=== PATIENT | female | born 1965 | race African-American/Black ===

== ENCOUNTER 2017-02-17 13:31 | Emergency (ER) | payer MEDICARE, OTHER ==
[~2017-02-17] VITALS: Ht 162.6 cm; Wt 72.6 kg
[2017-02-17] MEDS ORDERED: NORCO 10-325 T1 EACH ORAL (13:42)
[2017-02-17] MEDS ORDERED: ATORVASTATIN CA20 MG ORAL (13:42)
[2017-02-17 13:50] VITALS: BP 130/69
[2017-02-17] MEDS ORDERED: Ketorolac 60mg Inj IM ONE (14:15)
[2017-02-17] MEDS ORDERED: IBUPROFEN600 MG ORAL (15:04)
[2017-02-17] MEDS ORDERED: ACETAMINOPHEN-1 EAC1 ORAL (15:04)
[2017-02-17 15:10] VITALS: BP 130/69
--- NOTE | 2017-02-17 21:31 | Emergency Room Report ---
History of Present Illness General Chief Complaint: Pain Source: Patient Present Illness HPI The patient is a 51-year-old female presenting for lower back pain. She states that she has a history of chronic lower back pain with sciatica. She denies any recent injury. Pain is a 7/10 dull ache to the mid lower back and radiates down both legs. Worse with movement. She denies any numbness or tingling. She denies any incontinence She denies other symptoms including N, V, F, chills, SOB, abd pain Allergies: Coded Allergies: No Known Allergies (Unverified , 02/17/17) Patient History Past Medical History: see triage record Pertinent Family History: none Last Menstrual Period: Hyst Reviewed Nursing Documentation: PMH: Agreed, PSxH: Agreed Review of Systems All Other Systems: negative except mentioned in HPI Physical Exam Vital Signs Date Time Temp Pulse Resp B/P (MAP) Pulse Ox O2 Delivery O2 Flow Rate FiO2 02/17/17 13:36 98.2 89 16 130/69 98 Room Air Sp02 EP Interpretation: reviewed, normal General Appearance: no apparent distress, alert, GCS 15, non-toxic Head: normocephalic, atraumatic Eyes: bilateral eye normal inspection, bilateral eye PERRL ENT: hearing grossly normal, normal pharynx, no angioedema, normal voice Neck: full range of motion, supple/symm/no masses Respiratory: chest non-tender, lungs clear, normal breath sounds, speaking full sentences Cardiovascular #1: regular rate, rhythm, no edema Genitourinary: normal inspection, no CVA tenderness Musculoskeletal: back normal, gait/station normal, normal range of motion, tender - bilat Lumbar paraspinal muscles Neurologic: alert, oriented x3, responsive, motor strength/tone normal, sensory intact, speech normal Psychiatric: judgement/insight normal, memory normal, mood/affect normal, no suicidal/homicidal ideation Skin: normal color, no rash, warm/dry, well hydrated Medical Decision Making PA Attestation Dr. Givens is my supervising physician. Patient management was discussed with my supervising physician Diagnostic Impression: Primary Impression: Back pain Qualified Codes: M54.5 - Low back pain ER Course The patient is a 51-year-old female presenting for back pain Ddx considered include but not limited to lumbar strain, degenerative disease, cauda equina syndrome, chronic pain, narcotic dependency. PE: NAD TTP over bilat lumbar paraspinal muscles. Normal gait. No deformity. No midline TTP The patient is given Toradol in the emergency department for pain and is feeling better. She'll be discharged home and needs to follow up with her primary doctor. ER precautions are given Last Vital Signs Date Time Temp Pulse Resp B/P (MAP) Pulse Ox O2 Delivery O2 Flow Rate FiO2 02/17/17 15:10 98.2 16 130/69 98 Room Air 02/17/17 13:36 89 Status: improved Disposition: HOME, SELF-CARE Condition: Improved Scripts Acetaminophen With Codeine (T#3) (TYLENOL #3 TAB*) Y Tab 1 TAB ORAL Q6HR Y for For Pain, #10 TAB Prov: FITO BRAXTON 02/17/17 Ibuprofen* (MOTRIN*) 600 Mg Tablet 600 MG ORAL Q8H Y for For Pain, #30 TAB 0 Refills Prov: FITO BRAXTON 02/17/17 Patient Instructions: Sciatica, Back Pain, Adult Additional Instructions: I discussed my findings with the patient. All questions and concerns have been answered. Treatment and medication compliance have been addressed. I advised the patient that they need to follow up with PMD in 3-5 days. Return to ED if symptoms worsen, new symptoms arise, or if needed for any reason. Patient verbalized understanding of discharge instructions. FITO BRAXTON Feb 17, 2017 21:31
== END 2017-02-17 15:10 | disposition home or self-care (01) ==
LOC: EMR 14:09
DX: M54.40 Lumbago with sciatica, unspecified side (principal); G89.29 Other chronic pain
CPT/HCPCS: 96372; 99284

== ENCOUNTER 2018-10-26 15:30 | Emergency (ER) | payer MEDICARE, OTHER ==
[~2018-10-26] VITALS: Ht 162.6 cm; Wt 79.8 kg
[~2018-10-26 15:30] MED LIST: ACETAMINOPHEN-1 EAC1 ORAL; ATORVASTATIN CA20 MG ORAL; IBUPROFEN600 MG ORAL; NORCO 10-325 T1 EACH ORAL
[2018-10-26 16:00] VITALS: BP 119/79
--- NOTE | 2018-10-26 16:00 | NUR ---
ED Nurse Note: pt walked in due to rash on the skin. pt stated it might be from an insect bite. seen by louie norman. will continue to monitor.
--- NOTE | 2018-10-26 16:15 | Emergency Room Report ---
History of Present Illness General Chief Complaint: General Complaint Source: Patient Present Illness HPI 53-year-old female presents to the emergency department for multiple itchy red insect bites on lower extremities and upper extremities. Patient also reports one on the right side of her stomach which is the largest and has moderate erythema. Patient denies recent travel or ill contacts. Pt. denies pain, fevers, chills or swollen tender lymph nodes. Denies lesions/rashes elsewhere on the body. Denies new medications or body washes or creams. Denies swelling of the lips, tongue , throat or airway. Denies wheezing, or shortness of breath. Denies recent travel, recent illness or ill contacts. denies blisters , oral lesions, or sloughing of the skin. Allergies: Coded Allergies: No Known Allergies (Unverified , 02/17/17) Patient History Past Medical History: see triage record Past Surgical History: none Pertinent Family History: none Now: No Reviewed Nursing Documentation: PMH: Agreed; PSxH: Agreed Nursing Documentation-PMH Past Medical History: No History, Except For Review of Systems All Other Systems: negative except mentioned in HPI Physical Exam Vital Signs Date Time Temp Pulse Resp B/P (MAP) Pulse Ox O2 Delivery O2 Flow Rate FiO2 10/26/18 15:38 98.2 74 18 119/79 (92) 96 Room Air Sp02 EP Interpretation: reviewed, normal General Appearance: no apparent distress, alert, GCS 15, non-toxic Head: normocephalic, atraumatic Eyes: bilateral eye normal inspection, bilateral eye PERRL ENT: hearing grossly normal, normal voice Neck: full range of motion, other - no stridor Respiratory: chest non-tender, lungs clear, normal breath sounds, no respiratory distress, no accessory muscle use, no wheezing, speaking full sentences Cardiovascular #1: regular rate, rhythm Musculoskeletal: back normal, gait/station normal, normal range of motion, non- tender Neurologic: alert, oriented x3, responsive, motor strength/tone normal, sensory intact, speech normal, grossly normal Psychiatric: judgement/insight normal Skin: other - insect bites of multiple sites, one 1cm bite on the right side of the stomach with 2-3 cm diameter of surrounding erythema and warmth. no blisters or vesicles. No crusting. excoriations noted. Lymphatic: no adenopathy Medical Decision Making PA Attestation Dr. Nicholas Is my supervising Physician whom patient management has been discussed with. Diagnostic Impression: Primary Impression: Insect bites Qualified Codes: W57.XXXA - Bitten or stung by nonvenomous insect and other nonvenomous arthropods, initial encounter Additional Impression: Cellulitis Qualified Codes: L03.90 - Cellulitis, unspecified ER Course 53-year-old female presents to the emergency department for multiple itchy red insect bites on lower extremities and upper extremities. Patient also reports one on the right side of her stomach which is the largest and has moderate erythema. Patient denies recent travel or ill contacts. Pt. denies pain, fevers, chills or swollen tender lymph nodes. Denies lesions/rashes elsewhere on the body. Denies new medications or body washes or creams. Denies swelling of the lips, tongue , throat or airway. Denies wheezing, or shortness of breath. Denies recent travel, recent illness or ill contacts. denies blisters , oral lesions, or sloughing of the skin. Ddx considered but are not limited to cellulitis, scabies, insect bites, tic bites, spider bites, contact dermatitis, Drug reaction, allergic reaction, fungal infection, lice. Vital signs: are WNL, pt. is afebrile H&PE are most consistent with insect bites of multiple sites, one bite on the right side of the stomach appears to have secondary cellulitis. ORDERS: none required at this time, the diagnosis is clinical ED INTERVENTIONS: None required at this time. DISCHARGE: At this time pt. is stable for d/c to home. Will provide printed patient care instructions, and any necessary prescriptions. Care plan and follow up instructions have been discussed with the patient prior to discharge. Last Vital Signs Date Time Temp Pulse Resp B/P (MAP) Pulse Ox O2 Delivery O2 Flow Rate FiO2 10/26/18 15:38 98.2 74 18 119/79 (92) 96 Room Air Disposition: HOME, SELF-CARE Condition: Stable Scripts Hydrocortisone 2% Cream (ANTI-ITCH 2% CREAM) Y Cr 1 APPLIC TP Q6HR, #28 GM Prov: Nell Starkey 10/26/18 Cephalexin* (KEFLEX*) 500 Mg Capsule 500 MG ORAL EVERY 12 HOURS for 7 Days, #14 CAP 0 Refills Prov: Nell Starkey 10/26/18 Patient Instructions: Cellulitis, [id number], Insect Bite, [id number] Additional Instructions: Take medications as directed. Follow up with a Primary Care Provider in 3-5 days, even if your symptoms have resolved. --Please review list of primary care clinics, if you do not already have a primary care provider Return sooner to ED if new symptoms occur, or current symptoms become worse. - Please note that this Emergency Department Report was dictated using [employer] polisher technology software, occasionally this can lead to erroneous entry secondary to interpretation by the dictation equipment. Nell Starkey Oct 26, 2018 16:15
[2018-10-26] MEDS ORDERED: ANTI-ITCH28 G1 TP (16:16)
[2018-10-26] MEDS ORDERED: CEPHALEXIN500 MG ORAL (16:16)
[2018-10-26 16:37] VITALS: BP 119/79
--- NOTE | 2018-10-26 16:37 | NUR ---
ER DISCHARGE NOTE: Patient is cleared to be discharged per ERMD, pt is aox4, on room air, with stable vital signs. pt was given dc and prescription instructions, pt was able to verbalize understanding, pt id band removed without complications. pt is able to ambulate with steady gait. pt took all belongings.
== END 2018-10-26 16:37 | disposition home or self-care (01) ==
LOC: EMR 16:20
DX: S80.862A Insect bite (nonvenomous), left lower leg, initial encounter (principal); S80.861A Insect bite (nonvenomous), right lower leg, initial encounter; S20.361A Insect bite (nonvenomous) of right front wall of thorax, initial encounter; S40.862A Insect bite (nonvenomous) of left upper arm, initial encounter; S40.861A Insect bite (nonvenomous) of right upper arm, initial encounter; W57.XXXA Bitten or stung by nonvenomous insect and other nonvenomous arthropods, initial encounter; Y92.9 Unspecified place or not applicable; L03.90 Cellulitis, unspecified
CPT/HCPCS: 99282

== ENCOUNTER 2018-12-11 13:23 | Emergency (ER) | payer MEDICARE, OTHER ==
[~2018-12-11] VITALS: Ht 167.6 cm; Wt 77.1 kg
[~2018-12-11 13:23] MED LIST changes: +ANTI-ITCH28 G1 TP; +CEPHALEXIN500 MG ORAL
--- NOTE | 2018-12-11 13:50 | NUR ---
ED Nurse Note: pt from home walked into ED c/o skin rash located on her lower right abdomen ermd eval done awaiting orders.
--- NOTE | 2018-12-11 13:59 | Emergency Room Report ---
History of Present Illness General Chief Complaint: Skin Rash/Abscess Source: Patient Present Illness HPI 53-year-old female with no significant past medical history presents today complaining of pruritic rash in the right lower quadrant that started 3 days ago. Patient reports that she always gets this rash in the same exact spot whenever walking into either her partner or her brother is guarding. Denies any pain at the site of the affected area. Denies fever and chills. Slightly erythematous lesion noted in the right lower quadrant with possible cyst pocket underneath. Denies nausea vomiting abdominal pain. Denies chest pain palpitation. Has not taken medication for symptom relief. Patient was recently seen at [facility] 2 months ago for similar lesions on her lower extremities and was diagnosed with infected insect bite given Keflex. Denies any fall or injury to the affected area. Denies any past surgical history in the affected area. Allergies: Coded Allergies: No Known Allergies (Unverified , 02/17/17) Patient History Past Medical History: see triage record Past Surgical History: unable to obtain Pertinent Family History: none Last Menstrual Period: n/a Now: No Immunizations: UTD Reviewed Nursing Documentation: PMH: Agreed; PSxH: Agreed Nursing Documentation-PMH Past Medical History: No History, Except For Review of Systems All Other Systems: negative except mentioned in HPI Physical Exam Vital Signs Date Time Temp Pulse Resp B/P (MAP) Pulse Ox O2 Delivery O2 Flow Rate FiO2 12/11/18 13:31 98.2 72 18 117/93 (101) 98 Room Air Sp02 EP Interpretation: reviewed, normal General Appearance: no apparent distress, alert, GCS 15, non-toxic Head: normocephalic, atraumatic Eyes: bilateral eye normal inspection, bilateral eye PERRL ENT: hearing grossly normal, normal pharynx, no angioedema, normal voice Neck: full range of motion, supple/symm/no masses Respiratory: chest non-tender, lungs clear, normal breath sounds, no rhonchi, speaking full sentences Cardiovascular #1: regular rate, rhythm, no edema, no murmur, normal capillary refill Gastrointestinal: normal bowel sounds, non tender, soft, non-distended, no guarding, no rebound Rectal: deferred Genitourinary: normal inspection, no CVA tenderness Musculoskeletal: back normal, gait/station normal, normal range of motion, non- tender Neurologic: alert, oriented x3, responsive, motor strength/tone normal, sensory intact, speech normal Psychiatric: judgement/insight normal, memory normal, mood/affect normal, no suicidal/homicidal ideation Skin: other - Slightly erythematous lesion in the right lower quadrant not warm to touch Lymphatic: normal inspection Medical Decision Making PA Attestation Diagnosis and treatment plans were reviewed and discussed with my supervising physician Dr. Nicholas Diagnostic Impression: Primary Impression: Infected insect bite of abdomen ER Course 53-year-old female with no significant past medical history presents today complaining of pruritic rash in the right lower quadrant that started 3 days ago. Patient reports that she always gets this rash in the same exact spot whenever walking into either her partner or her brother is guarding. Denies any pain at the site of the affected area. Denies fever and chills. Slightly erythematous lesion noted in the right lower quadrant with possible cyst pocket underneath. Denies nausea vomiting abdominal pain. Denies chest pain palpitation. Has not taken medication for symptom relief. Patient was recently seen at [facility] 2 months ago for similar lesions on her lower extremities and was diagnosed with infected insect bite given Keflex. Denies any fall or injury to the affected area. Denies any past surgical history in the affected area. Ddx considered but are not limited to : Cellulitis, infected insect bite, superficial infection, abscess Vital signs: are WNL, pt. is afebrile H&PE are most consistent with: Infected insect bite ORDERS: Augmentin, hydrocortisone cream ED INTERVENTIONS: None required at this time. DISCHARGE: At this time pt. is stable for d/c to home. Will provide printed patient care instructions, and any necessary prescriptions. Care plan and follow up instructions have been discussed with the patient prior to discharge. Follow with primary care provider if needed referral to licensed tax consultant per request of primary care. If worsening symptoms, fever and chills return to the emergency room. If any pus drainage return to the emergency room. At this time no indication for drainage as this is a superficial cyst. Last Vital Signs Date Time Temp Pulse Resp B/P (MAP) Pulse Ox O2 Delivery O2 Flow Rate FiO2 12/11/18 13:31 98.2 72 18 117/93 (101) 98 Room Air Disposition: HOME, SELF-CARE Condition: Stable Scripts Hydrocortisone 2% Cream (ANTI-ITCH 2% CREAM) Y Cr 2 GM TP TID, #28 GM Prov: Gagandeep Jin 12/11/18 Amoxicillin/Potassium Clav 875-125* (AUGMENTIN 875-125 TABLET*) 1 Each Tablet 1 TAB ORAL TWICE A DAY for 7 Days, #14 TAB Prov: Gagandeep Jin 12/11/18 Patient Instructions: Insect Bite, [id number] Additional Instructions: Take medication as directed follow-up with your primary care provider worsening symptoms return to the emergency room Gagandeep Jin Dec 11, 2018 13:58
[2018-12-11] MEDS ORDERED: ANTI-ITCH28 G1 TP (14:00)
[2018-12-11] MEDS ORDERED: AUGMENTIN 875-1 EAC1 ORAL ×2 (14:00→15:31)
[2018-12-11 14:18] VITALS: BP 117/93
[2018-12-11 14:25] VITALS: BP 117/93
--- NOTE | 2018-12-11 14:25 | NUR ---
ED Nurse Note: Pt cleared by health care Provider for discharge. DC instructions/prescription was given and explained to pt and verbalized understanding of teachings. All medical deviecs such as ID band removed. Pt is AAO x4, ambulatory and left with all personal belongings.
== END 2018-12-11 14:25 | disposition home or self-care (01) ==
LOC: EMR 14:11
DX: S30.861A Insect bite (nonvenomous) of abdominal wall, initial encounter (principal); L08.9 Local infection of the skin and subcutaneous tissue, unspecified; W57.XXXA Bitten or stung by nonvenomous insect and other nonvenomous arthropods, initial encounter; Y92.9 Unspecified place or not applicable
CPT/HCPCS: 99282